=== PATIENT | female | born 1960 | race Caucasian/White ===

== ENCOUNTER → 2016-10-13 | Outpatient (CLI) | payer OTHER, BC ==
[2016-10-13 09:16] LABS: EKG EKG PERFORMED
[2016-10-13 10:21] LABS: CHCM 33.1; HCT 40.7 % (34.0-46.0); HDW 2.38; HGB 13.9 gm/dL (11.4-16.0); MCHC 34.1 g/dL (31.0-37.0); MCV 88.1 fL (80.0-100.0); Mean Platelet Volume 6.8; RBC 4.62 m/uL (3.80-5.40); RDW 13.8 % (11.5-15.5); WBC 8.8 k/uL (3.8-10.6)
[2016-10-13 10:38] LABS: Appearance,Urine Cloudy (Clear); Bilirubin,Urine Negative (Negative); Calcium Oxalate Crystals,Urine Many /hpf; Glucose,Urine (UA) Negative (Negative); Ketones,Urine Negative (Negative); Leukocyte Esterase,Urine Negative (Negative); Mucus,Urine Moderate /hpf; Nitrite,Urine Negative (Negative); PH, Urine 6.5 (5.0-8.0); Particle Count 8121; Protein,Urine Trace (Negative); Specific Gravity,Urine 1.022 (1.001-1.035); Squamous Epithelial Cell,Urine 2 /hpf (0-4); UA Billing (MACRO vs. MICRO) MICRO; Urobilinogen,Urine <2.0 mg/dL (<2.0); WBC,Urine 4 /hpf (0-5)
[2016-10-13 10:40] LABS: Partial Thromboplastin Time 25.3 sec (22.0-30.0)
[2016-10-13 10:41] LABS: ALT 26 U/L (9-52); AST 18 U/L (14-36); Alkaline Phosphatase 55 U/L (38-126); Anion Gap 11 mmol/L; Blood Urea Nitrogen 10 mg/dL (7-17); Calcium 9.2 mg/dL (8.4-10.2); Carbon Dioxide 27 mmol/L (22-30); Chloride 104 mmol/L (98-107); Glucose 103 mg/dL (74-99); Non-African American GFR(MDRD) >60 (>60 ml/min/1.73 sqM); Potassium 4.2 mmol/L (3.5-5.1); Sodium 142 mmol/L (137-145); Total Bilirubin 0.8 mg/dL (0.2-1.3); Total Protein 7.8 g/dL (6.3-8.2)
[2016-10-13 15:25] LABS: Prothrombin Time 10.2 sec (9.0-12.0)
== END | disposition home or self-care (01) ==
LOC: LABPAT 08:49
PROVIDERS: ATTEND Orthopaedic Surgery
DX: Z01.812 Encounter for preprocedural laboratory examination (principal); Z01.810 Encounter for preprocedural cardiovascular examination
CPT/HCPCS: 80053; 81001; 85027; 85610; 85730; 87070; 93005

== ENCOUNTER 2016-10-20 05:56 | Inpatient (IN) | payer OTHER, BC ==
[2016-10-16 17:13] VITALS: BMI 41.5
[~2016-10-20 05:56] MED LIST: ACETAMINOPHEN TAB 500 MG TAB PO ONE; DEXAMETHASONE SOD PHOSPHATE 10 MG/ML 1 ML VIAL IV ONE; HYDROmorphone 1 MG/ML 1 ML SYRINGE IVP PRN; MELOXICAM 7.5 MG TAB PO ONE; ONDANSETRON 4 MG/2 ML VIAL IVP ONE; TRANEXAMIC ACID 1,000 MG in SODIUM CHLORIDE 0.9% 100 ML IVPB ONE; ceFAZolin 2 GM in SODIUM CHLORIDE 0.9% 100 ML IVPB ONE
[2016-10-20] MEDS: LACTATED RINGERS 1,000 ML IV SCH ×2 (06:27→23:36)
[2016-10-20] MEDS ORDERED: LIDOCAINE 1% 20 ML VIAL (10MG/ML) FOR IV START INTRADERMA ONE (06:27)
[2016-10-20] MEDS ORDERED: MIDAZOLAM 2 MG/2 ML VIAL ONE (06:59)
[2016-10-20] MEDS ORDERED: ceFAZolin 3,000 MG in SODIUM CHLORIDE 0.9% IRRIGATIO 3,000 ML IRRIGATION ONE (06:59)
[2016-10-20] MEDS ORDERED: HEPARIN SODIUM,PORCINE 10,000 UNIT/ML 1 ML VIAL ONE (06:59)
[2016-10-20] MEDS ORDERED: TRANEXAMIC ACID 1,000 MG/10 ML VIAL ONE (06:59)
[2016-10-20] MEDS ORDERED: SODIUM CHLORIDE 0.9% 100 ML BAG ONE (06:59)
[2016-10-20] MEDS ORDERED: PROPOFOL 10 MG/ML 20 ML VIAL IV ONE (06:59)
[2016-10-20] MEDS ORDERED: SODIUM CHLORIDE 0.9% IRRIG 1,000 ML BTL IRRIGATION ONE (06:59)
[2016-10-20] MEDS ORDERED: fentaNYL (PF) 50 MCG/ML 2 ML AMP ONE (06:59)
[2016-10-20] MEDS: ROPIVACAINE 246.25 MG, EPINEPHrine 0.5 MG, KETOROLAC 30 MG, cloNIDine HCL/PF 80 MCG, WA... MISCELLANE ONE ×10 (07:30→08:15)
[2016-10-20] MEDS ORDERED: HYDROcodone/APAP 5-325MG 1 EACH TAB PO PRN (08:54)
[2016-10-20] MEDS ORDERED: hydrOXYzine PAMOATE 25 MG CAP PO PRN (08:54)
[2016-10-20] MEDS ORDERED: MAGNESIUM HYDROXIDE 2,400 MG/10 ML CUP PO PRN (08:54)
[2016-10-20] MEDS ORDERED: DIAZEPAM 5 MG TAB PO PRN ×2 (08:54)
[2016-10-20] MEDS ORDERED: ONDANSETRON 4 MG/2 ML VIAL IVP PRN (08:54)
[2016-10-20] MEDS ORDERED: NALOXONE 0.4 MG/ML 1 ML VIAL IV PRN (08:54)
[2016-10-20] MEDS ORDERED: HYDROmorphone 1 MG/ML 1 ML SYRINGE IVP PRN ×3 (08:54)
--- NOTE | 2016-10-20 09:34 | XR ---
EXAMINATION TYPE: XR Hip Limited LT DATE OF EXAM: 10/20/2016 9:12 AM COMPARISON: NONE HISTORY: Status post hip surgery TECHNIQUE: Single AP left hip FINDINGS: Left hip prosthesis has been placed. No acute fractures are evident. Some postsurgical air may be lateral to the greater trochanter. IMPRESSION: 1. No acute fractures post left hip prosthesis.
--- NOTE | 2016-10-20 09:46 | FL ---
Fluoroscopy INDICATION: Pain FINDINGS: Fluoroscopy time: 53 seconds. Images obtained: 2. IMPRESSIONS: 1. Documentation of fluoroscopy.
[2016-10-20] MEDS: SODIUM CHLORIDE 0.9% 1,000 ML IV SCH ×2 (10:24→20:40)
--- NOTE | 2016-10-20 15:14 | P.OP ---
Date of Procedure: 10/20/16 Preoperative Diagnosis: Severe osteoarthritis left hip Postoperative Diagnosis: Severe osteoarthritis left hip Procedure(s) Performed: Left total hip arthroplasty with a direct anterior approach Implants: Shipman and nephew Polarstem size 3 standard Shipman [employer] Nephew R3, 3 hole acetabular shell, 52 mm Shipman [employer] Nephew reflection 6.5 mm cancellus screw, 20 mm 2 Shipman [employer] Nephew R3, XLPE 20 acetabular liner Shipman [employer] Nephew Oxinium femoral head 36 m, +4 All components were press-fit. The articulation is ceramic on polyethylene. Anesthesia: spinal Surgeon: Brandon Rivers Pool Table Operator #1: Aniyah Hooker Pool Table Operator #2: Debby Ruth Estimated Blood Loss (ml): 150 (61 mL returned with Cell Saver) Pathology: other (Femoral head) Condition: stable Disposition: PACU Indications for Procedure: After failure of conservative treatment we discussed the surgical and nonsurgical treatment options at length. Patient wishes to proceed with a total hip arthroplasty with a direct anterior approach. Complications specific to this procedure were discussed at length, including but not limited to infection, leg length discrepancy, dislocation, and nerve injury. Patient is aware of all these complications and informed consent was obtained Operative Findings: The operative findings are consistent with severe osteoarthritis of the left hip Description of Procedure: Patient was seen and evaluated in the preoperative area, consent was reviewed, and the surgical site was marked with a skin marker. Patient was then brought to the operating room and given prophylactic antibiotics intravenously. 1 g of Tranexamic acid was also given. A spinal anesthetic was administered by the anesthesia department. The patient was then placed on the [place] table with the bony prominences well-padded. The hip area was then prepped and draped in usual sterile fashion. A universal timeout was then performed, which confirmed the patient's name, surgical site, ALLERGIES, and procedure being performed. Next the incision site was located at 1 cm distal and 1 cm lateral to the anterior superior iliac spine. The skin and subcutaneous tissues were sharply incised. Incision was carefully dissected down to the fascia overlying the tensor fascia betsy muscle. This fascia was then incised in line with the incision. Next, using blunt finger dissection, the tensor fascia betsy muscle was dissected off its investing fascia. The muscle was then carefully retracted laterally with a cobra retractor over the lateral neck of the femur. Next, the circumflex vessels were identified and cauterized using the AquaMantis device. The anterior hip capsule was then exposed. The capsule was then opened and an inverted T fashion. Retention sutures were placed in the inferior arms of the capsule. Cobra retractors were then placed intracapsularly. The proximal femur was then visualized. The femoral neck was then osteotomized appropriate level above the lesser trochanter. Small amount of traction was placed with the [place] table. A small wedge of bone was then removed from the remaining femoral head. Next, using a corkscrew femoral head was easily removed from the acetabulum. On gross visual inspection, the femoral head had complete loss of articular cartilage in multiple periarticular osteophytes. Attention was then turned to the acetabulum. the acetabulum was exposed and any remaining labrum was excised. Sequential reaming of the acetabulum was performed using fluoroscopic guidance. When the appropriate size was reached, a trial was then placed. The position and fit of the trial was checked with fluoroscopy. The trial was then removed. Then, using fluoroscopic guidance, the final implant was impacted at 20 of anteversion and 40 of abduction, and fully seated in the acetabulum. 2 screws were then placed in the acetabulum. Again fluoroscopy was used to check position of the screws. Next, the liner was then impacted, with a 20 elevated liner located in the anterior superior quadrant. Component locking was confirmed. Attention was then directed to the femur. With the aid of the [place] table, the femur was externally rotated to approximately 130, extended, and abducted under the opposite leg. A side hook was then placed under the proximal femur, and the side hook elevator was used to elevate the proximal femur. Retractors were then placed. A capsular release was performed, as well as a release of the conjoined tendon, which afforded excellent visualization of the proximal femur. Next, a box osteotome was used to lateralize the proximal femur. A warehouse freight handler was then used to locate the femoral canal. Sequential broaching was then performed with appropriate size which afforded excellent fixation in the proximal femur. A trial was then placed with appropriate head and neck, and the hip was gently reduced with the aid of the [place] table. Fluoroscopy was then used to check position of the components, as well as to ensure equal leg lengths. The hip was then gently dislocated and the trials were then removed. Final implants were then impacted and the hip was again reduced. Final fluoroscopic x-rays confirmed that the components were in anatomic position, as well as equal leg lengths. The hip was also taken through range of motion, and found to be stable. The hip was then copiously irrigated with antibiotic solution with pulsatile lavage. The hip was then irrigated with Irrisept solution. The soft tissues were then injected with a ropivacaine solution, which consisted of 246.25 mg of ropivacaine, 0.5 mg of epinephrine, 30 mg of Toradol, 80 g of clonidine, and 48.45 mL of sterile water, for a total of 100 mL of fluid injected. A second dose of 1 g of Tranexamic acid was also given. the fascia was then closed with 2-0 strata fix suture. The subcutaneous tissue was closed with 3-0 Vicryl. The subcuticular tissue was closed with 3-0 strata fix suture. The skin was then closed with Dermabond tape. The patient was then transferred to the recovery room in stable condition. The diagnostic assistant TOPHER Frausto was required due to the complexity of surgery , and the need for skilled medical or surgical instrument maker for positioning, draping, exposure , retraction, and closure of the wound.
[2016-10-20] MEDS: ceFAZolin 2 GM in SODIUM CHLORIDE 0.9% 100 ML IVPB SCH ×2 (15:47→23:37)
[2016-10-20] MEDS: ASPIRIN 325 MG TAB PO SCH (20:36)
[2016-10-20] MEDS: SENNOSIDES-DOCUSATE SODIUM 1 EACH TAB PO SCH (20:36)
--- NOTE | 2016-10-20 22:25 | CONS ---
DATE OF CONSULTATION: 10/20/2016 REASON FOR CONSULTATION: Medical management requested by Dr. Rivers. CONSULTATION: This is a pleasant 56-year-old patient of Dr. Orona who has undergone left total hip arthroplasty. Post-procedure some pain is present. Very slight nausea is present. No chest pain or shortness of breath. Sitting up in bed, comfortable. REVIEW OF SYSTEMS: CONSTITUTIONAL: None. HEENT: None. RESPIRATORY: None. CARDIOVASCULAR: None. GASTROINTESTINAL: As above. GENITOURINARY: None. MUSCULOSKELETAL: Pain in multiple joints. DERMATOLOGICAL: None. HEMATOLOGICAL: None. LYMPHATIC: None. PSYCHIATRY: None. NEUROLOGICAL: Sleep apnea. PAST MEDICAL HISTORY: 1. Osteoarthritis. 2. Obstructive sleep apnea. PAST SURGICAL HISTORY: 1. Colonoscopy. 2. Removal of wisdom tooth. SOCIAL HISTORY: Alcohol rarely. 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 FAMILY HISTORY: Cancer, type unknown. HOME MEDICATIONS: 1. Multivitamin with calcium. 2. Women's multivitamin 1 tablet p.o. daily. ALLERGIES: HYDROCODONE and IBUPROFEN. On examination, temperature 97.8, pulse 71, respiration 16, blood pressure 141/87, pulse ox 99%. GENERAL APPEARANCE: Well built; BMI of 41.6. Sitting up, not in distress. EYES: Pupils equal. Conjunctivae normal. HEENT: Oral cavity normal. NECK: JVD not raised. Mass not palpable. RESPIRATORY: Effort normal. Lungs are clear. CARDIOVASCULAR: First and second sounds normal. No edema. ABDOMEN: Soft, nontender. Liver and spleen not palpable. LYMPHATIC: No lymph node palpable in neck or axillae. PSYCHIATRY: Alert and oriented x3. Mood and affect normal. EXTREMITIES: Dressing over the left hip. INVESTIGATIONS: No blood work from today. ASSESSMENT: 1. Left total hip arthroplasty. 2. Primary osteoarthritis in multiple joints bilaterally. 3. Obstructive sleep apnea; uses CPAP machine. 4. Morbid obesity; body mass index of 41.6. PLAN: Pain control is in place. Patient is getting aspirin for DVT prophylaxis. Venodyne boots are in place. Care was discussed with the patient. Questions were answered. Thank you, Dr. Rivers.
[2016-10-21 07:50] LABS: Basophils % (A) 0 %; CH 28.5; CHCM 31.8; Eosinophils # (A) 0.1 k/uL (0-0.7); Eosinophils % (A) 1 %; HCT 32.6 % (34.0-46.0); HDW 2.24; Luc # (Auto) 0.22; Luc % (Auto) 2; Lymphocytes # (A) 2.7 k/uL (1.0-4.8); Lymphocytes % (A) 29 %; MCH 28.7 pg (25.0-35.0); MCHC 31.8 g/dL (31.0-37.0); MCV 90.2 fL (80.0-100.0); Mean Platelet Volume 7.2; Monocytes # (A) 0.9 k/uL (0-1.0); Monocytes % (A) 10 %; Neutrophils # (A) 5.4 k/uL (1.3-7.7); Neutrophils % (A) 58 %; RBC 3.61 m/uL (3.80-5.40); RDW 14.2 % (11.5-15.5); WBC 9.3 k/uL (3.8-10.6); WBC (Perox) 9.56
[2016-10-21 07:56] LABS: HGB 10.4 gm/dL (11.4-16.0)
[2016-10-21] MEDS: ASPIRIN 325 MG TAB PO SCH ×2 (08:04→20:14)
[2016-10-21] MEDS: MELOXICAM 7.5 MG TAB PO SCH (08:05)
--- NOTE | 2016-10-21 08:59 | P.DS ---
Providers Date of admission: 10/20/16 05:56 Expected date of discharge: 10/21/16 Attending physician: Brandon Rivers Consults: 10/20/16 08:54 Consult Physician Routine Consulting Provider: Lg Dumont Consult Reason/Comments: medical management Do you want consulting provider notified?: Yes Primary care physician: [facility] Course: This is a 56-year-old female with known history of degenerative arthritis of the left hip. The patient presents for evaluation. After discussion and consideration patient elects to proceed with total hip arthroplasty. The patient is seen preoperatively by Dr. Rivers and cleared for surgery. Patient is admitted to [facility] on 10/20/16 for total hip arthroplasty. The procedures performed without complication or sequelae. The patient is doing well postoperatively. Labs and vital signs are stable on day of discharge. On day of discharge patient's hip incision is healing well. There is minimal erythema. There is no drainage noted at this time. There is minimal soft tissue swelling to the hip and thigh. Patient has full foot and ankle motion without difficulty or pain. Patient has been able to ambulate. Neurovascular status to the left lower extremity is intact. Patient is discharged home in good condition. Please see med rec for accurate list of home medications. Plan - Discharge Summary New Discharge Prescriptions: Aspirin 325 mg PO BID #60 tab HYDROcodone/APAP 5-325MG [[place] 5-325] 1 - 2 tab PO Q4-6H PRN #90 tab PRN Reason: Pain Sennosides-Docusate Sodium [Senokot-S] 1 tab PO BID #60 tablet Discharge Medication List Multivit with Calcium,Iron,Min [Women's Multivitamin] 1 tab PO DAILY 10/16/16 [ History] Aspirin 325 mg PO BID #60 tab 10/21/16 [Rx] HYDROcodone/APAP 5-325MG [[place] 5-325] 1 - 2 tab PO Q4-6H PRN #90 tab 10/21/16 [ Rx] Sennosides-Docusate Sodium [Senokot-S] 1 tab PO BID #60 tablet 10/21/16 [Rx] Follow up Appointment(s)/Referral(s): Brandon Rivers DO [Doctor of Osteopathic Medicine] - 2 Weeks Activity/Diet/Wound Care/Special Instructions: Weightbearing as tolerated with walker May shower after 2 days if no drainage from the incision Follow-up with [facility] in 2 weeks with any questions or concerns Discharge Disposition: HOME WITH HOME HEALTH SERVICES
--- NOTE | 2016-10-21 12:37 | PN ---
DATE OF SERVICE: 10/21/2016 PRESENTING COMPLAINT: Left hip arthroplasty. INTERVAL HISTORY: Patient is status post left hip surgery, doing well. No nausea or vomiting. Did tolerate her breakfast. Did work with physical therapy. Sitting up in a chair, comfortable. Review of systems done for constitutional, cardiovascular, GI, pulmonary, musculoskeletal; relevant findings as above. Current medications are reviewed. On examination, temperature 98.1, pulse 84, respirations 16, blood pressure 149/77, pulse ox 97% on room air. GENERAL APPEARANCE: Propped up on a chair, comfortable. EYES: Pupils equal. Conjunctivae normal. NECK: JVD not raised. Mass not palpable. RESPIRATORY: Effort normal. Lungs are clear. CARDIOVASCULAR: First and second sounds normal. No edema. ABDOMEN: Soft, nontender. Liver and spleen not palpable. PSYCHIATRY: Alert and oriented x3. Mood and affect normal. INVESTIGATIONS: Hemoglobin is 10.4. ASSESSMENT: 1. Left total hip arthroplasty. 2. Primary osteoarthritis of multiple joints, bilaterally. 3. Obstructive sleep apnea, uses CPAP machine. 4. Morbid obesity, body mass index of 41.6. 5. Acute postoperative blood loss anemia as expected from surgery. PLAN: Patient may take iron supplementation. Other medication and treatment plan is to continue. Care was discussed with the patient. Thank you, Dr. Rivers.
[2016-10-21] MEDS: SODIUM CHLORIDE 0.9% 1,000 ML IV SCH ×2 (14:52→22:39)
[2016-10-21 20:13] VITALS: RESP 16
[2016-10-21] MEDS: SENNOSIDES-DOCUSATE SODIUM 1 EACH TAB PO SCH (20:14)
[2016-10-21] MEDS: HYDROcodone/APAP 5-325MG 1 EACH TAB PO PRN (20:19)
[2016-10-21] MEDS: LACTATED RINGERS 1,000 ML IV SCH (22:39)
[2016-10-22] MEDS: HYDROcodone/APAP 5-325MG 1 EACH TAB PO PRN ×3 (02:42→14:59)
[2016-10-22 07:12] VITALS: BP 136/78; PULSE 96; TEMP 98.5
[2016-10-22] MEDS: ASPIRIN 325 MG TAB PO SCH (07:23)
[2016-10-22] MEDS: MELOXICAM 7.5 MG TAB PO SCH (07:24)
--- NOTE | 2016-10-22 11:23 | PN ---
DATE OF SERVICE: 10/22/2016 PRESENTING COMPLAINT: Left hip surgery. INTERVAL HISTORY: The patient is doing well, sitting up in a chair, comfortable. Up and about. No nausea or vomiting. No chest pain. Review of systems done for constitutional, cardiovascular, GI, pulmonary, musculoskeletal; relevant findings as above. Current medications are reviewed. On examination, temperature 98.5, pulse 96, respirations 16, blood pressure 136/78, pulse ox 96% on room air. GENERAL APPEARANCE: Sitting up on the chair, comfortable. EYES: Pupils equal. Conjunctivae normal. NECK: JVD not responsible. Mass not palpable. RESPIRATORY: Effort normal. Lungs are clear. CARDIOVASCULAR: First and second sounds normal. No edema. ABDOMEN: Soft, nontender. Liver and spleen not palpable. PSYCHIATRY: Alert and oriented x3. Mood and affect normal. INVESTIGATIONS: No blood work from today. ASSESSMENT: 1. Left total hip arthroplasty. 2. Primary osteoarthritis of multiple joints, bilaterally. 3. Obstructive sleep apnea, uses CPAP machine. 4. Morbid obesity, body mass index of 41.6. 5. Acute postoperative blood loss anemia expected from surgery. PLAN: Patient doing well. After discharge, she is to follow up with the family doctor. Thank you Dr. Rivers.
== END 2016-10-22 16:19 | disposition home health service (06) | DRG 470 ==
LOC: 2ORMAIN 05:56 → 3SUR 08:50
PROVIDERS: ADMIT Orthopaedic Surgery; ATTEND Orthopaedic Surgery
PROC: 0SRB04A Replacement of Left Hip Joint with Ceramic on Polyethylene Synthetic Substitute, Uncemented, Open Approach (ICD-10-PCS; principal; 2016-10-20 07:00)
DX: M16.12 Unilateral primary osteoarthritis, left hip (principal); Z68.41 Body mass index [BMI] 40.0-44.9, adult; D62 Acute posthemorrhagic anemia; E66.01 Morbid (severe) obesity due to excess calories; G47.33 Obstructive sleep apnea (adult) (pediatric); Z88.5 Allergy status to narcotic agent
CPT/HCPCS: 73501; 81025; 85025; 86850; 86891; 86900; 86901; 88300

== ENCOUNTER → 2021-12-13 | Outpatient (CLI) | payer OTHER, BC ==
[2021-12-13 09:31] LABS: INR 0.9 (<1.2); Partial Thromboplastin Time 25.3 sec (22.0-30.0); Prothrombin Time 10.3 sec (9.0-12.0)
[2021-12-13 11:06] LABS: HCT 43.8 % (37.2-46.3); HGB 14.3 g/dL (12.0-15.0); MCH 28.5 pg (27.0-32.0); MCHC 32.6 g/dL (32.0-37.0); MCV 87.4 fL (80.0-97.0); NRBC Per 100 WBC 0 /100 WBCS (0.0-0.0); Platelet Count 250 X 10*3/uL (140-440); RBC 5.01 X 10*6/uL (4.10-5.20); RDW 15.2 % (11.5-14.5); WBC 7.48 X 10*3/uL (4.50-10.00)
[2021-12-13 11:47] LABS: Appearance,Urine Cloudy (Clear); Bilirubin,Urine Negative (Negative); Blood,Urine Negative (Negative); Color,Urine Yellow (Yellow); Ketones,Urine Trace mg/dL (Negative); Nitrite,Urine Negative (Negative); PH, Urine 5.5 (5.0-8.0); Specific Gravity,Urine 1.027 (1.001-1.030); Urobilinogen,Urine 0.2 (0.2,1.0)
[2021-12-13 12:00] LABS: African American GFR (CKD) 80.5 (60.0-200.0); Albumin/Globulin Ratio 1.29 (1.60-3.17); BUN/Creat Ratio 14.44 Ratio (12.00-20.00); Calcium 9.3 mg/dL (8.7-10.3); Globulin 3.1 g/dL (1.6-3.3); Non-African American GFR(CKD) 69.5 (60.0-200.0); Potassium 4.2 mmol/L (3.5-5.5); Total Bilirubin 0.3 mg/dL (0.30-1.20); Total Protein 7.1 g/dL (6.2-8.2)
[2021-12-13 12:43] LABS: Bacteria,Urine None Seen /HPF (None Seen); Calcium Oxalate Crystals,Urine Present /LPF (None Seen); Yeast (UA) Present /LPF (None Seen)
== END | disposition home or self-care (01) ==
LOC: LABPAT 07:56
PROVIDERS: ATTEND Orthopaedic Surgery
DX: Z01.812 Encounter for preprocedural laboratory examination (principal); M16.11 Unilateral primary osteoarthritis, right hip
CPT/HCPCS: 80053; 81001; 85027; 85610; 85730; 86850; 86900; 86901

== ENCOUNTER 2021-12-22 06:44 | Day surgery (SDC) | payer BC, OTHER ==
[2021-12-13 09:31] LABS: INR 0.9 (<1.2); Partial Thromboplastin Time 25.3 sec (22.0-30.0); Prothrombin Time 10.3 sec (9.0-12.0)
[2021-12-13 11:06] LABS: HCT 43.8 % (37.2-46.3); HGB 14.3 g/dL (12.0-15.0); MCH 28.5 pg (27.0-32.0); MCHC 32.6 g/dL (32.0-37.0); MCV 87.4 fL (80.0-97.0); NRBC Per 100 WBC 0 /100 WBCS (0.0-0.0); Platelet Count 250 X 10*3/uL (140-440); RBC 5.01 X 10*6/uL (4.10-5.20); RDW 15.2 % (11.5-14.5); WBC 7.48 X 10*3/uL (4.50-10.00)
[2021-12-13 11:47] LABS: Appearance,Urine Cloudy (Clear); Bilirubin,Urine Negative (Negative); Blood,Urine Negative (Negative); Color,Urine Yellow (Yellow); Ketones,Urine Trace mg/dL (Negative); Nitrite,Urine Negative (Negative); PH, Urine 5.5 (5.0-8.0); Specific Gravity,Urine 1.027 (1.001-1.030); Urobilinogen,Urine 0.2 (0.2,1.0)
[2021-12-13 12:00] LABS: African American GFR (CKD) 80.5 (60.0-200.0); Albumin/Globulin Ratio 1.29 (1.60-3.17); BUN/Creat Ratio 14.44 Ratio (12.00-20.00); Calcium 9.3 mg/dL (8.7-10.3); Globulin 3.1 g/dL (1.6-3.3); Non-African American GFR(CKD) 69.5 (60.0-200.0); Potassium 4.2 mmol/L (3.5-5.5); Total Bilirubin 0.3 mg/dL (0.30-1.20); Total Protein 7.1 g/dL (6.2-8.2)
[2021-12-13 12:43] LABS: Bacteria,Urine None Seen /HPF (None Seen); Calcium Oxalate Crystals,Urine Present /LPF (None Seen); Yeast (UA) Present /LPF (None Seen)
[~2021-12-22 06:44] MED LIST changes: -ACETAMINOPHEN TAB 500 MG TAB PO ONE; +ACETAMINOPHEN TAB 500 MG TAB PO PRN; -DEXAMETHASONE SOD PHOSPHATE 10 MG/ML 1 ML VIAL IV ONE; +GABAPENTIN 300 MG CAP PO PRN; -HYDROmorphone 1 MG/ML 1 ML SYRINGE IVP PRN; -MELOXICAM 7.5 MG TAB PO ONE; +MELOXICAM 7.5 MG TAB PO PRN; -ONDANSETRON 4 MG/2 ML VIAL IVP ONE; -TRANEXAMIC ACID 1,000 MG in SODIUM CHLORIDE 0.9% 100 ML IVPB ONE; +TRANEXAMIC ACID IN NACL,ISO-OS 1,000 MG in SALINE 1 100ML.BAG IVPB PRN; -ceFAZolin 2 GM in SODIUM CHLORIDE 0.9% 100 ML IVPB ONE
[2021-12-22] MEDS ORDERED: ONDANSETRON 4 MG/2 ML VIAL IVP PRN (07:17)
[2021-12-22] MEDS ORDERED: LIDOCAINE 1% (10MG/ML) FOR IV START INTRADERMA PRN (07:17)
[2021-12-22] MEDS ORDERED: HYDROmorphone 0.5 MG/0.5 ML SYRINGE IVP PRN (07:17)
[2021-12-22] MEDS ORDERED: DEXAMETHASONE SOD PHOSPHATE 4 MG/ML 1 ML VIAL IV ONE (07:17)
[2021-12-22] MEDS: LACTATED RINGERS 1,000 ML IV SCH ×3 (07:50→22:19)
[2021-12-22] MEDS ORDERED: LIDOCAINE 2% INJ 20 MG/ML (2 ML VIAL) ONE (08:58)
[2021-12-22] MEDS ORDERED: TRANEXAMIC ACID IN NACL,ISO-OS 1,000 MG/100 ML BAG ONE (08:58)
[2021-12-22] MEDS ORDERED: PROPOFOL 10 MG/ML 20 ML VIAL IV ONE (08:58)
[2021-12-22] MEDS ORDERED: KETAMINE 10 MG/ML 20 ML VIAL ONE (08:58)
[2021-12-22] MEDS ORDERED: PHENYLEPHRINE-0.9% NACL SYG 1,000 MCG/10 ML SYRINGE ONE (08:58)
[2021-12-22] MEDS ORDERED: fentaNYL (PF) 50 MCG/ML 2 ML AMP ONE (08:58)
[2021-12-22] MEDS ORDERED: MIDAZOLAM 2 MG/2 ML VIAL ONE (08:58)
[2021-12-22] MEDS ORDERED: GLYCOPYRROLATE 0.2 MG/ML 2 ML VIAL ONE (08:58)
[2021-12-22] MEDS ORDERED: ROPIVACAINE 5 MG/ML 30 ML VIAL MISCELLANE ONE ×2 (09:39→10:35)
[2021-12-22] MEDS ORDERED: ceFAZolin 1,000 MG in SODIUM CHLORIDE 0.9% 1,000 ML IRRIGATION ONE (09:40)
--- NOTE | 2021-12-22 10:40 | P.OP ---
Date of Procedure: 12/22/21 Preoperative Diagnosis: Severe osteoarthritis right hip Postoperative Diagnosis: Severe osteoarthritis right hip Procedure(s) Performed: Right total hip arthroplasty with a direct anterior approach Implants: Shipman [employer] Nephew Polarstem standard size 3 Shipman [employer] Nephew R3, 3 hole hemispherical acetabular shell, 54 mm Shipman [employer] Nephew Reflection 6.5 mm cancellus screw, 20, 15 mm x 2 Shipman [employer] Nephew R3, XLPE 20 acetabular liner Shipman [employer] Nephew Oxinium femoral head 36 m, +4 All components were press-fit. The articulation is Oxinium on polyethylene. Anesthesia: spinal Surgeon: Brandon Rivers Solder Deposit Operator #1: Lyubov Gomez Estimated Blood Loss (ml): 400 Pathology: other (Femoral head) Condition: stable Disposition: PACU Indications for Procedure: After failure of conservative treatment we discussed the surgical and nonsurg ical treatment options at length. Patient wishes to proceed with a total hip arthroplasty with a direct anterior approach. Complications specific to this procedure were discussed at length, including but not limited to infection, leg length discrepancy, dislocation, nerve injury, and fracture. Covid-19 was also discussed at length with the patient, and they are aware of the current policies and procedures. The patient was given the option of delaying surgery, but they elect to proceed knowing these risks. Patient is aware of all these complications and informed consent was obtained Operative Findings: The operative findings are consistent with severe osteoarthritis of the right hip Description of Procedure: Patient was seen and evaluated in the preoperative area and the consent was reviewed. The operative site was marked with a skin marker. The patient was then brought to the operating room and given preoperative antibiotics intravenously. 1 g of Tranexamic acid was also given intravenously. A spinal anesthetic was administered by the anesthesia department. The patient was then placed on the [place] table with the bony prominences well-padded. The hip area was then prepped with a ChloraPrep solution and draped in the usual sterile fashion. A universal timeout was then performed, which confirmed the patient's name, surgical site, ALLERGIES, and procedure being performed on the consent. Next the incision site was located at 1 cm distal and 2 cm lateral to the anterior superior iliac spine. The skin and subcutaneous tissues were sharply incised. Incision was carefully dissected down to the fascia overlying the tensor fascia betsy muscle. This fascia was then incised in line with the incision. Care was taken to stay laterally in order to avoid injuring the lateral femoral cutaneous nerve. Next, using blunt finger dissection, the tensor fascia betsy muscle was dissected off its investing fascia. The muscle was then carefully retracted laterally with a cobra retractor over the lateral neck of the femur. Next, the circumflex vessels were identified and cauterized using the AquaMantis device. The anterior hip capsule was then exposed. The capsule was then opened and an inverted T fashion. Cobra retractors were then placed intracapsularly. The retractors were maintained intracapsular throughout the procedure. The proximal femur was then visualized. Fluoroscopic x-rays were then taken in order to evaluate the preoperative leg lengths. A small amount of traction was placed on the leg. The femoral neck was then osteotomized at the appropriate level above the lesser trochanter. A small wedge of bone was then removed from the remaining femoral head. Next, using a corkscrew the femoral head was removed from the acetabulum. On gross visual inspection, the femoral head had complete loss of articular cartilage and multiple periarticular osteophytes. The femoral head was then measured. Attention was then turned to the acetabulum. The acetabulum was exposed and any remaining labrum was excised. Sequential reaming of the acetabulum was performed using fluoroscopic guidance until there was a good bed of bleeding cancellus bone. When the appropriate size was reached, a trial was then placed. The position and fit of the trial was checked with fluoroscopy. The trial was then removed. Then, using fluoroscopic guidance, the final implant was impacted at 20 of anteversion and 40 of abduction, and fully seated in the acetabulum. 2 screws were then placed in the acetabulum. Again fluoroscopy was used to check position of the screws. Next, the liner was then impacted, with a 20 elevated liner located in the anterior superior quadrant. Component locking was confirmed. Attention was then directed to the femur. With the aid of the [place] table, the femur was externally rotated to approximately 130, extended, and adducted under the opposite leg. A side hook was then placed under the proximal femur, and the side hook elevator was used to elevate the proximal femur while releasing the capsule. Retractors were then placed. A capsular release was performed, as well as a release of the conjoined tendon, which afforded excellent visualization of the proximal femur. Next, a box osteotome was used to lateralize the proximal femur. A ribbon hand was then used to locate the femoral canal. Sequential broaching was then performed with appropriate size which afforded excellent fixation in the proximal femur. A trial was then placed with appropriate head and neck, and the hip was gently reduced with the aid of the [place] table. Fluoroscopy was then used to check position of the components, as well as to ensure equal leg lengths. The hip was then gently dislocated and the trials were then removed. Final implants were then impacted and the hip was again reduced. Final fluoroscopic x-rays confirmed that the components were in anatomic position, as well as equal leg lengths. The hip was also taken through range of motion, and found to be stable. The hip was then copiously irrigated with antibiotic solution with pulsatile lavage. The hip was then irrigated with Irrisept solution. The soft tissues were then injected with a ropivacaine solution. A second dose of 1 g of Tranexamic acid was also given intravenously. The fascia was then closed with 2-0 strata fix suture. The subcutaneous tissue was closed with 3-0 Vicryl. The subcuticular tissue was closed with 3-0 strata fix suture. The skin was then closed with Exofin skin glue. After the glue and dried, and Optifoam silver impregnated dressing was applied. The patient was then transferred to the recovery room in stable condition. The drug safety assistant TOPHER Carlton was required due to the complexity of surgery, and the need for skilled assistant nurse manager for positioning, draping, exposure, retraction, and closure of the wound.
[2021-12-22] MEDS ORDERED: LACTATED RINGERS 1,000 ML IV ONE (10:47)
[2021-12-22] MEDS ORDERED: traMADol 50 MG TAB PO PRN (11:10)
[2021-12-22] MEDS ORDERED: NALOXONE 0.4 MG/ML 1 ML VIAL IV PRN (11:10)
[2021-12-22] MEDS ORDERED: MAGNESIUM HYDROXIDE 2,400 MG/10 ML CUP PO PRN (11:10)
--- NOTE | 2021-12-22 11:12 | XR ---
Fluoroscopy History: RT HIP-ANTERIOR 44 sec FL
--- NOTE | 2021-12-22 11:39 | XR ---
EXAMINATION TYPE: XR Hip Limited RT DATE OF EXAM: 12/22/2021 11:31 AM INDICATION: Patient age:Female; 61 years old; Reason for study: Status post hip surgery, assess surgical alignment; COMPARISON: Radiograph/fluoroscopy from 12/22/2021. TECHNIQUE: The right hip was examined in the frontal projections FINDINGS: Right hip arthroplasty with hardware in appropriate alignment. No evidence of acute fractur e. There is subcutaneous lucency consistent with recent surgical changes. No evidence of any acute os seous pathology or joint dislocation. IMPRESSION: Status post right hip arthroplasty with stable alignment. No acute fractures.
--- NOTE | 2021-12-22 16:56 | P.CONS ---
History of Present Illness - Reason for Consult Consult date: 12/22/21 Medical management Requesting physician: Brandon Rivers - Chief Complaint Right hip surgery - History of Present Illness This is a very pleasant 61-year-old patient who follows with Dr. Baylee Saavedra. Chronic stable medical conditions include obstructive sleep apnea uses CPAP, arthritis in many joints, hypertension. Patient is undergone right total hip arthroplasty. Postprocedure sitting up in a chair. Pain control. No nausea vomiting. No chest pain or shortness of breath. Denies any cardiac history. Review of systems: GEN.: None EYES: None HEENT: None NECK: None RESPIRATORY: None CARDIOVASCULAR: None GASTROINTESTINAL: None GENITOURINARY: None MUSCULOSKELETAL: [Joint pains LYMPHATICS: None HEMATOLOGICAL: None PSYCHIATRY: None NEUROLOGICAL: None Past medical history to include: Osteoarthritis, [place], hypertension Social history: No smoking. Alcohol rarely. . Family history: Cancer Physical examination: VITAL SIGNS: 98.3, 72, 16, 97 x 67, 94% on room air GENERAL: 116 kg,. Sitting up in a chair, awake, comfortable EYES: Pupils equal. Conjunctiva normal. HEENT: External appearance of nose and ears normal, oral cavity grossly normal. NECK: JVD not raised; masses not palpable. HEART: First and second heart sounds are normal; no edema. LUNGS: Respiratory rate normal; clear to auscultation. ABDOMEN: Soft, nontender, liver spleen not palpable, no masses palpable. PSYCH: Alert and oriented x3; mood and affect normal. MUSCULOSKELETAL:No Clubbing/cyanosis;muscles-grossly intact. Dressing over the right hip. Evidence of OA. NEUROLOGICAL: Cranial nerves grossly intact; no facial asymmetry, power and sensation grossly intact. LYMPHATICS: No lymph nodes palpable in the axilla and neck INVESTIGATIONS, reviewed in the clinical context: [12/13/2021] White count 7.4 hemoglobin 14.3 platelets 250 sodium 140 potassium 4.2 BUN 13 creatinine 0.9 Assessment and plan: -Right total hip arthroplasty Aspirin 325 mg twice a day, IV Ancef for infection prophylaxis. Pain control -Primary osteoarthritis multiple joints bilateral Analgesics as needed -Obstructive sleep apnea cPAP -Essential hypertension Cozaar 25 mg daily at bedtime. Resume medications. Pain medications. Aspirin for DT prophylaxis. Patient should use her CPAP. Care was discussed with the patient. Questions answered. Thank you Dr. Heithoff Past Medical History Past Medical History: Osteoarthritis (OA), Sleep Apnea/CPAP/BIPAP Additional Past Medical History / Comment(s): LT HIP PAIN. USES CPAP., TRH 12/2021, TLH 2016 History of Any Multi-Drug Resistant Organisms: None Reported Additional Past Surgical History / Comment(s): EXC WISDOM TEETH. COLONOSCOPY. Past Anesthesia/Blood Transfusion Reactions: No Reported Reaction Past Psychological History: No Psychological Hx Reported Smoking Status: Never smoker Past Alcohol Use History: Rare Past Drug Use History: None Reported - Past Family History Mother Family Medical History: Cancer Medications and Allergies Home Medications Medication Instructions Recorded Confirmed Type Losartan [Cozaar] 25 mg PO HS 12/19/21 12/22/21 History Aspirin 325 mg PO BID #60 tab 12/22/21 Rx Celecoxib [CeleBREX] 200 mg PO DAILY #30 capsule 12/22/21 Rx Ondansetron Odt [Zofran Odt] 4 mg PO Q8HR PRN #14 tab 12/22/21 Rx Sennosides-Docusate Sodium 1 tab PO BID #60 tablet 12/22/21 Rx [Senokot-S] traMADol HCl [Ultram] 50 mg PO Q6HR PRN #28 tab 12/22/21 Rx Allergies Allergy/AdvReac Type Severity Reaction Status Date / Time hydrocodone [From Vicoprofen] AdvReac Nausea & Verified 12/22/21 11:25 Vomiting Physical Exam Vitals: Vital Signs Temp Pulse Pulse Resp BP BP Pulse Ox 12/22/21 14:00 75 101/68 91 L 12/22/21 13:35 71 97/66 92 L 12/22/21 13:30 71 101/68 94 L 12/22/21 13:15 73 96/61 96 12/22/21 13:00 84/54 90 L 12/22/21 12:45 98.3 F 72 16 97/67 94 L 12/22/21 12:35 65 16 115/62 100 12/22/21 12:20 66 16 116/63 100 12/22/21 12:05 69 16 116/63 100 12/22/21 11:45 71 16 113/57 100 12/22/21 11:30 81 16 116/56 100 12/22/21 11:20 85 16 115/56 100 12/22/21 11:05 97.5 F L 90 14 125/65 97 12/22/21 07:27 96.4 F L 84 18 166/79 96 Intake and Output 12/22/21 12/22/21 12/22/21 06:59 14:59 22:59 Intake Total 1401 Output Total 400 Balance 1001 Intake: IV 1401 Output: Estimated Blood Loss 400 Other: # Voids 1 Weight 116.1 kg Results CBC & Chem 7: 12/13/21 08:17 12/13/21 08:17
[2021-12-22] MEDS: ACETAMINOPHEN TAB 500 MG TAB PO PRN (20:11)
[2021-12-22] MEDS ORDERED: SENNOSIDES-DOCUSATE SODIUM 1 EACH TAB PO SCH (21:00)
[2021-12-22] MEDS ORDERED: LOSARTAN 25 MG TAB PO SCH (21:00)
[2021-12-22] MEDS: ASPIRIN 325 MG TAB PO SCH (22:40)
[2021-12-23] MEDS: ACETAMINOPHEN TAB 500 MG TAB PO PRN (03:57)
[2021-12-23] MEDS: LACTATED RINGERS 1,000 ML IV SCH ×2 (07:36)
[2021-12-23 07:40] VITALS: BP 97/63; PULSE 63; RESP 16; TEMP 98.4
[2021-12-23] MEDS: ASPIRIN 325 MG TAB PO SCH (08:08)
--- NOTE | 2021-12-23 08:55 | P.DS ---
Providers Date of admission: 12/22/2021 Expected date of discharge: 12/23/21 Attending physician: Brandon Rivers Consults: 12/22/21 11:10 Consult Physician Routine Consulting Provider: Lg Dumont Consult Reason/Comments: Medical management Do you want consulting provider notified?: Yes Primary care physician: Baylee Saavedra - Discharge Diagnosis(es) (1) Osteoarthritis of right hip Current Visit: Yes Status: Acute (2) Status post total hip replacement, right Current Visit: Yes Status: Acute (3) Right hip pain Current Visit: Yes Status: Acute (4) Hypertension Current Visit: Yes Status: Acute Hospital Course: This is a pleasant 61-year-old female who presented with severe osteoarthritic the right hip who failed outpatient conservative therapy. She was admitted for a right total hip arthroplasty with direct anterior approach. The patient tolerated the procedure well and did well postoperatively. The pain in her right hip has been well-controlled with oral Ultram. She is able to ambulate with the assistance of a walker without difficulty. She has a walker at home. She is urinating without difficulty. She's been eating without difficulty. She is very happy with her progress postoperatively until she is ready for discharge today. Condition on day of discharge stable. Patient will be discharged home. Patient was cleared preoperatively for surgery by Dr. Saavedra. Patient currently denies any nausea, vomiting, fever, or chills. Patient may shower Optifoam dressing intact. Patient may remove Optifoam dressing in 1 week and shower without a dressing at that time. Patient should refrain from driving until at least after their first follow-up appointment in the office. She may continue to utilize a walker to aid in ambulation as needed. A bear as tolerated on the right lower extremity. MAPS was previously reviewed. An "Opiod Start Talking" Form has been signed and placed in the patient's chart. A prescription has been written for Ultram 50 mg 1 tab every 6 hours as needed for pain, dispensed #28. Patient is also given prescription for aspirin 325 mg 1 twice a day, dispensed #60. Patient should take this prescription until completion. Patient is given prescription for Celebrex 200 mg, Senokot-S, and Zofran. Patient may take his medications as prescribed as needed. These medications were sent to the [facility] pharmacy located in the [facility] per request of the patient. Patient's other medical diagnoses include hypertension Physical Exam Total Hip Arthroplasty: Status post surgical day number 1 Patient is examined sitting bedside upright in a chair Patient is awake and alert, and oriented 3 Vital signs stable Good chest excursion with deep inspiration and expiration No signs or symptoms of DVT; no calf pain Lower extremity cuffs not currently in place bilaterally Dressing of the right hip is clean, dry, and intact; no erythema, purulence, or signs of infection Full range of motion of ankles bilaterally Dorsiflexion, plantarflexion, and extensor hallucis longus positive sustained right lower extremity Neurovascularly intact right lower lower extremities Procedures: Right total hip arthroplasty Patient Condition at Discharge: Stable Plan - Discharge Summary New Discharge Prescriptions: New Aspirin 325 mg PO BID #60 tab Sennosides-Docusate Sodium [Senokot-S] 1 tab PO BID #60 tablet Celecoxib [CeleBREX] 200 mg PO DAILY #30 capsule traMADol HCl [Ultram] 50 mg PO Q6HR PRN #28 tab PRN Reason: Pain Ondansetron Odt [Zofran Odt] 4 mg PO Q8HR PRN #14 tab PRN Reason: Nausea No Action Losartan [Cozaar] 25 mg PO HS Discharge Medication List Losartan [Cozaar] 25 mg PO HS 12/19/21 [History] Aspirin 325 mg PO BID #60 tab 12/22/21 [Rx] Celecoxib [CeleBREX] 200 mg PO DAILY #30 capsule 12/22/21 [Rx] Ondansetron Odt [Zofran Odt] 4 mg PO Q8HR PRN #14 tab 12/22/21 [Rx] Sennosides-Docusate Sodium [Senokot-S] 1 tab PO BID #60 tablet 12/22/21 [Rx] traMADol HCl [Ultram] 50 mg PO Q6HR PRN #28 tab 12/22/21 [Rx] Follow up Appointment(s)/Referral(s): Brandon Rivers DO [Doctor of Osteopathic Medicine] - 2 Weeks Activity/Diet/Wound Care/Special Instructions: 1. May weight-bear as tolerated with walker. 2. Keep Optifoam dressing intact 7 days post op. 3. Patient is shower with dressing intact. 4. Take medications as prescribed. 5. May shower 48h post op. 6. Any questions or concerns patient may contact [facility] at [phone] Discharge Disposition: HOME WITH HOME HEALTH SERVICES
[2021-12-23 08:57] LABS: Basophils # (A) 0.03 X 10*3/uL (0.00-0.10); Basophils % (A) 0.2 %; Eosinophils # (A) 0.04 X 10*3/uL (0.04-0.35); Eosinophils % (A) 0.3 %; HCT 31.9 % (37.2-46.3); HGB 10.3 g/dL (12.0-15.0); Immature Grans, Automated 0.4 %; Lymphocytes # (A) 3.06 X 10*3/uL (0.90-5.00); Lymphocytes % (A) 22.8 %; MCH 28.8 pg (27.0-32.0); MCHC 32.3 g/dL (32.0-37.0); MCV 89.1 fL (80.0-97.0); Mean Platelet Volume 10.6 fL (9.5-12.2); Monocytes # (A) 1.48 X 10*3/uL (0.20-1.00); NRBC Per 100 WBC 0 /100 WBCS (0.0-0.0); Neutrophils # (A) 8.77 X 10*3/uL (1.80-7.70); Neutrophils % (A) 65.3 %; Platelet Count 234 X 10*3/uL (140-440); RBC 3.58 X 10*6/uL (4.10-5.20); RDW 15.2 % (11.5-14.5); WBC 13.43 X 10*3/uL (4.50-10.00)
[2021-12-23] MEDS ORDERED: CYCLOBENZAPRINE 5 MG TAB PO PRN (11:11)
--- NOTE | 2021-12-23 12:57 | P.PN ---
Progress Note - Text Progress Note Date: 12/23/21 - Chief Complaint Right hip surgery Hospital course This is a very pleasant 61-year-old patient who follows with Dr. Baylee Saavedra. Chronic stable medical conditions include obstructive sleep apnea uses CPAP, arthritis in many joints, hypertension. Patient is undergone right total hip arthroplasty. Postprocedure sitting up in a chair. Pain control. No nausea vomiting. No chest pain or shortness of breath. Denies any cardiac history. December 23: Patient did activity with PT OT. No dizziness nor lightheadedness. No nausea vomiting. Blood pressure running on the lower side. Discussed with the patient and the to hold after Cozaar and check daily blood pressure. To resume Cozaar with systolic blood pressure above 120. Also added on iron supplement. Active Medications Acetaminophen (Acetaminophen Tab 500 Mg Tab) 1,000 mg PO Q6HR PRN PRN Reason: Fever and/ or Pain Last Admin: 12/23/21 03:57 Dose: 1,000 mg Aspirin (Aspirin 325 Mg Tab) 325 mg PO BID [facility] Stop: 01/21/22 21:01 Last Admin: 12/23/21 08:08 Dose: 325 mg Cyclobenzaprine HCl (Cyclobenzaprine 5 Mg Tab) 5 mg PO TID PRN PRN Reason: Mild Spasms Last Admin: 12/23/21 11:21 Dose: 5 mg Lactated Ringer's (Lactated Ringers) 1,000 mls @ 20 mls/hr IV .Q24H AL Stop: 01/21/22 07:18 Last Admin: 12/23/21 07:36 Dose: Not Given Lactated Ringer's (Lactated Ringers) 1,000 mls @ 100 mls/hr IV .Q10H AL Stop: 01/21/22 11:16 Last Admin: 12/23/21 07:36 Dose: Not Given Lidocaine HCl (Lidocaine 1% (10mg/Ml) For Iv Start) 0.1 ml INTRADERMA PER PROTOCOL PRN PRN Reason: IV Start Stop: 01/21/22 07:18 Losartan Potassium (Losartan 25 Mg Tab) 25 mg PO HS AL Last Admin: 12/22/21 22:40 Dose: 25 mg Magnesium Hydroxide (Magnesium Hydroxide 2,400 Mg/10 Ml Cup) 2,400 mg PO DAILY PRN PRN Reason: Constipation Stop: 01/21/22 11:11 Naloxone HCl (Naloxone 0.4 Mg/Ml 1 Ml Vial) 0.2 mg IV Q2M PRN PRN Reason: Opioid Reversal Stop: 01/21/22 11:11 Senna/Docusate Sodium (Sennosides-Docusate Sodium 1 Each Tab) 2 each PO HS AL Stop: 01/21/22 21:01 Last Admin: 12/22/21 22:40 Dose: 2 each Tramadol HCl (Tramadol 50 Mg Tab) 50 mg PO Q6HR PRN PRN Reason: Pain Stop: 01/21/22 11:11 Last Admin: 12/23/21 08:07 Dose: 50 mg Past medical history to include: Osteoarthritis, [place], hypertension Social history: No smoking. Alcohol rarely. . Family history: Cancer Physical examination: VITAL SIGNS: 98.4, 63, 16, 97 x 63, 96% room air GENERAL: Sitting up in a chair, awake, comfortable EYES: Pupils equal. Conjunctiva normal. HEENT: External appearance of nose and ears normal, oral cavity grossly normal. NECK: JVD not raised; masses not palpable. HEART: First and second heart sounds are normal; no edema. LUNGS: Respiratory rate normal; clear to auscultation. ABDOMEN: Soft, nontender, liver spleen not palpable, no masses palpable. PSYCH: Alert and oriented x3; mood and affect normal. MUSCULOSKELETAL:No Clubbing/cyanosis;muscles-grossly intact. Dressing over the right hip. Evidence of OA. INVESTIGATIONS, reviewed in the clinical context: December 23: White count 13.4 hemoglobin 10.3 [12/13/2021] White count 7.4 hemoglobin 14.3 platelets 250 sodium 140 potassium 4.2 BUN 13 creatinine 0.9 Assessment and plan: -Right total hip arthroplasty Aspirin 325 mg twice a day, IV Ancef for infection prophylaxis. Pain control -Acute postprocedure blood loss anemia, expected from surgery Ferrous sulfate 325 twice a day -Relative hypotension from blood loss anemia Hold Cozaar to systolic blood pressure above 120 -Primary osteoarthritis multiple joints bilateral Analgesics as needed -Obstructive sleep apnea cPAP -Essential hypertension Cozaar 25 mg daily at bedtime. Discussed with patient and to resume Cozaar with systolic blood pressure above 120. Daily checks. Ferrous sulfate added. Follow-up with Dr. Saavedra. Total time spent about 40 minutes with over 25 minutes of discussion. Thank you Dr. Rivers
== END 2021-12-23 12:58 | disposition home health service (06) ==
LOC: OR 06:44 → 4SSUR 10:57 → OR 12-23 12:58
PROVIDERS: ATTEND Orthopaedic Surgery
DX: M16.11 Unilateral primary osteoarthritis, right hip (principal); I10 Essential (primary) hypertension; Z97.3 Presence of spectacles and contact lenses; G47.33 Obstructive sleep apnea (adult) (pediatric); Z98.890 Other specified postprocedural states; Z80.9 Family history of malignant neoplasm, unspecified; Z79.82 Long term (current) use of aspirin; Z79.891 Long term (current) use of opiate analgesic; Z79.1 Long term (current) use of non-steroidal anti-inflammatories (NSAID); Z79.899 Other long term (current) drug therapy; Z88.5 Allergy status to narcotic agent
CPT/HCPCS: 97161; 97166; 86900; 86901; 80053; 85025; 85027; 85610; 85730; 86850; 81001; 88300; 73501; 27130; C1776; J2250; J1100; J0690 ×3; J2405; J3010; J2795; J2370; J2704; J2001